=== PATIENT | female | born 1965 | race Caucasian/White ===

== ENCOUNTER 2016-07-07 09:23 | Emergency (ER) | payer SELFPAY ==
[~2016-07-07 09:23] MED LIST: ABILIFY5 MG PO; ASPIRIN325 MG PO; ATENOLOL/CHLORT1 TA PO; CELEBREX200 MG PO; CLARITIN10 M2 PO; CPAP; DETROL LA2 MG PO; DITROPAN XL10 MG PO; DITROPAN XL5 M2 PO; DULCOLAX10 MG/SUPP RC; EFFEXOR XR150 MG PO; EFFEXOR XR75 MG PO; EFFEXOR75 M1 PO; FLOVENT DISKU100 MCG INH; FLOVENT HFA12 GM IH; MILK OF MAGNESIA PO; MOBIC15 M1 PO; MOBIC7.5 MG PO; NEURONTIN300 MG PO; NORCO 5-325 TA1 EACH PO; NUCYNTA50 MG PO; PRILOSEC20 MG PO; PROMETHAZINE V120 ML PO; PROVENTIL HFA6.7 G1 INH; ROXICODONE5 MG/TAB PO; SINGULAIR10 MG PO; TYLENOL325 M1 PO; TYLENOL500 MG PO; ULTRAM50 MG PO; VENLAFAXINE PO; XARELTO10 MG PO; ZITHROMAX250MG Z-PAK PO; [UNRECOGNIZED DRUG - OTHER] PO
[2016-07-07] MEDS ORDERED: LISINOPRIL-HCT1 EAC1 PO (09:35)
[2016-07-07] MEDS ORDERED: MOBIC7.5 M2 PO (09:36)
[2016-07-07] MEDS ORDERED: CYCLOBENZAPRINE5 M1 PO (09:37)
[2016-07-07 10:18] LABS: BASO % 0.2 % (0-2); HCT-HEMATOCRIT 42.8 % (34.0-49.0); HGB-HEMOGLOBIN 14.7 gm/dl (12.0-15.5); IMMATURE GRANULOCYTES ABSOLUTE 0.02 tho/cmm (0-0.03); IMMATURE GRANULOCYTES PERCENT 0.2 % (0-0.3); LYMPH ABSOLUTE COUNT 2.5 tho/cmm (0.8-4.5); MCH (MEAN CORPUSCULAR HGB) 29.3 pg (28.0-32.0); MCHC MEAN CORPUSCULAR HGB CONC 34.3 % (32.0-36.0); MCV (MEAN CELL VOLUME) 85.3 fl (82.0-96.0); MEAN PLATELET VOLUME 10.9 cmc (9.4-12.4); MONO % 7.5 % (0-12); MONOCYTE ABSOLUTE COUNT 0.6 tho/cmm (0.0-1.2); NEUTROPHIL ABSOLUTE COUNT 4.9 tho/cmm (1.6-8.0); NEUTROPHIL-AUTOMATED 4.9 tho/cmm (1.6-8.0); NEUTROPHILS % 61.1 % (40-80); PLATELET COUNT 199 tho/cmm (150-450); RED BLOOD COUNT 5.02 mil/cmm (4.00-5.20); RED CELL DISTRIBUTION WIDTH 13.1 % (12.4-16.4)
[2016-07-07 10:32] LABS: ANION GAP 11 mmol/L (0-20); BLOOD UREA NITROGEN 14 mg/dl (6-24); CALCIUM 8.8 mg/dl (8.5-10.5); CARBON DIOXIDE-VENOUS 26 mmol/L (22-32); CHLORIDE 106 mmol/l (96-110); CREATININE 0.93 mg/dl (0.50-1.10); GLUCOSE 90 mg/dL (70-110); POTASSIUM 4.3 mmol/L (3.7-5.1); SODIUM 139 mmol/L (135-145); eGFR VALUE FOR BLACK 83 mL/Min
== END 2016-07-07 11:50 ==
LOC: EDMED 09:23
PROVIDERS: Emergency Medicine
DX: J20.9 Acute bronchitis, unspecified (principal); R07.89 Other chest pain; F17.210 Nicotine dependence, cigarettes, uncomplicated
CPT/HCPCS: J7030; Q9967